=== PATIENT | female | born 1975 | race American Indian/Alaskan Native ===

== ENCOUNTER 2018-04-20 10:36 | Outpatient (CLI) | payer BC ==
--- NOTE | 2018-04-20 11:36 | Mammography Report ---
BILATERAL MAMMOGRAM: FINDINGS: The breast tissue is heterogeneously dense, which could obscure detection of small masses (approximately 50%-75% glandular). No mass, distortion, suspicious calcification, or skin change is seen. No significant change compared to prior exam in June 2016. CAD was utilized. IMPRESSION: Negative mammogram. There is no mammographic evidence of malignancy. RECOMMENDATION: Follow-up per ACS guidelines. BI-RADS CATEGORY: 1 = Negative ACR BI-RADS MAMMOGRAPHIC CODES: 0 = Needs additional imaging evaluation; 1 = Negative; 2 = Benign; 3 = Probably benign; 4 = Suspicious; 5 = Malignant; 6 = Known biopsy-proven malignancy COMMENT: 1. Dense breast tissue, i.e., adenosis, fibrocystic changes, etc., may obscure an underlying neoplasm. 2. Approximately 10% of cancers are not detected with mammography. 3. A negative mammography report should not delay biopsy if a clinically suspicious mass is present. COMMENT: Patient follow-up letters are generated in [employer].
== END 2018-04-20 10:37 | disposition home or self-care (01) ==
LOC: MAMMO 10:36
PROVIDERS: ATTEND Obstetrics & Gynecology
DX: Z12.31 Encounter for screening mammogram for malignant neoplasm of breast (principal); K21.9 Gastro-esophageal reflux disease without esophagitis; Z82.49 Family history of ischemic heart disease and other diseases of the circulatory system
CPT/HCPCS: 77067

== ENCOUNTER 2019-04-15 09:42 | Inpatient (IN) | payer BC ==
[2019-04-09 11:58] LABS: Eosinophils % (Auto) 1.3 % (0.0-4.3); Hematocrit 36.1 % (30.3-42.9); Hemoglobin 11.7 gm/dl (10.1-14.3); Lymphocytes # (Auto) 1.3 K/mm3 (1.2-5.4); Lymphocytes % (Auto) 34.6 % (13.4-35.0); Mean Corpuscular HGB Conc 32 % (30-34); Mean Corpuscular Volume 76 fl (79-97); Monocytes # (Auto) 0.2 K/mm3 (0.0-0.8); Monocytes % (Auto) 5.9 % (0.0-7.3); Platelet Count 272 K/mm3 (140-440); Red Blood Count 4.73 M/mm3 (3.65-5.03); Red Cell Distribution Width 14.8 % (13.2-15.2)
[2019-04-09 12:16] LABS: BUN/Creatinine Ratio 11; Blood Urea Nitrogen 9 mg/dL (7-17); Calcium 8.8 mg/dL (8.4-10.2); Hemolysis Index 24
--- NOTE | 2019-04-09 12:24 | Anesthesia Consultation ---
Anesthesia Consult and Med Hx Date of service: 04/09/19 - Airway Anesthetic Teeth Evaluation: Good ROM Head & Neck: Adequate Mental/Hyoid Distance: Adequate Mallampati Class: Class II Intubation Access Assessment: Probably Good - Pulmonary Exam CTA: Yes - Cardiac Exam Cardiac Exam: RRR - Pre-Operative Health Status ASA Pre-Surgery Classification: ASA1 Proposed Anesthetic Plan: General Nerve Block: TAP Block - Pulmonary Hx Smoking: No Hx Respiratory Symptoms: No - Cardiovascular System Hx Hypertension: No Hx Heart Attack/AMI: No - Central Nervous System Hx Seizures: Yes (childhood only) CVA: No - Gastrointestinal Hx Gastroesophageal Reflux Disease: No (During only) - Endocrine Hx Renal Disease: No Hx Liver Disease: No Hx Insulin Dependent Diabetes: No Hx Non-Insulin Dependent Diabetes: No Hx Thyroid Disease: No - Hematic Hx Anemia: Yes - Additional Comments Anesthesia Medical History Comments: No hx anesthetic complications.
--- NOTE | 2019-04-14 15:31 | History and Physical Report ---
History of Present Illness Date of examination: 04/08/19 History of present illness: Patient has been reassessed/reevaluated. H&P has been reviewed. No interval changes. This is a 43 years old female who presents with complains of menorrhagia, metrorrhagia and dysmenorrhea, . The symptoms began 4-6 months ago. She c omplains of irregular menses, heavy bleeding, dysmenorrhea and cramping, but denies mid-cycle spotting, lack of menses, clotting, history of ovarian cysts, history of thyroid disease, history of fibroids, history of PCOS, history of bleeding disorder, lightheadedness and fatigue. Interval between menses is 15- 20 days. Menstrual flow lasts 4 days and 6 days. Patient reports that for pain she uses ibuprofen will little relief. Patient's work up has included hysterosonogram which showed thicken endometrium left ovarian cyst. endometrial biopy was benign Patient's symptoms when present disrupts her normal daily activities Patient desires definitive treatment Patient Profile: 43 Years Old Female LMP: 03/25/2019 Height: 65 inches (165.10 cm) Weight: 180 pounds BMI: 29.95 LMP (date): 03/25/2019 Date of Last Pap Smear: 02/15/2019 Past History : 5 Term Births: 4 Premature Births: 0 Living Children: 4 Para: 4 Mult. Births: 0 Aborta: 1 Elect. Ab: 0 Spont. Ab: 1 Ectopics: 0 NEURODIAGNOSTIC TECHNICIAN History Operations: Tubal Ligation Uterine Anomaly: negative Infection History HIV Risk Eval: no Personal hx. of genital herpes: no Hx of STD: None Current Allergies: No known allergies Past Medical History: Negative Past Medical History Past Surgical History: Tubal Ligation Family History Summary: Other family member - Has Family History of Coronary Heart Disease - Entered On: 02/17/2018 Other family member - Has Family History of Diabetes - Entered On: 02/17/2018 Other family member - Has Family History of Hypertension - Entered On: 02/17/2018 Other family member - Has Family History of Lung Cancer - Entered On: 02/17/2018 Other family member - Has Family History of Ovarian Cancer - Entered On: 02/17/2018 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 Risk Factors: Smoked Tobacco Use: Never smoker Smokeless Tobacco Use: Never Passive smoke exposure: no Drug use: no HIV high-risk behavior: no Caffeine use: 0 drinks per day Alcohol use: yes Type: weekends Exercise: no Seatbelt use: 100 % PAP Smear History: Date of Last PAP Smear: 02/15/2019 Review of Systems General Complains of fatigue. Denies fever, chills, sweats, anorexia, weakness, malaise, weight loss and sleep disorder. Complains of menorrhagia, pelvic pain and painful periods. Denies vaginal discharge, incontinence, dysuria, hematuria, urinary frequency, amenorrhea, abnormal vaginal bleeding, genital sores, decreased libido, painful sex, urinary urgency, hot flashes, vaginal dryness, vaginal itching and vaginal odor. CV Denies chest pains, palpitations, syncope, dyspnea on exertion, orthopnea, PND and peripheral edema. Resp Denies cough, dyspnea at rest, excessive sputum, hemoptysis, wheezing and pleurisy. GI Denies nausea, vomiting, diarrhea, constipation, change in bowel habits, abdominal pain, melena, hematochezia, jaundice, gas/bloating, indigestion/heartburn, dysphagia and odynophagia. Breast Denies left breast lump, right breast lump, nipple discharge, bloody discharge from nipple, breast pain, abnormal mammogram and breast enlargement. Psych Denies depression, anxiety, irritability and mood swings. Past History Past Medical History: other (See HPI) Past Surgical History: Other (See HPI) Social history: full code, other (See HPI) Family history: other (See HPI) Medications and Allergies Allergies Allergy/AdvReac Type Severity Reaction Status Date / Time No Known Allergies Allergy Verified 04/07/19 13:03 Home Medications Medication Instructions Recorded Confirmed Last Taken Type No Known Home Medications [No 04/07/19 04/07/19 Unknown History Reported Home Medications] Active Meds: Active Medications Celecoxib (Celebrex) 200 mg PO PREOP NR Stop: 04/15/19 23:59 Fentanyl (Sublimaze) 100 mcg IV ONCE PRN PRN Reason: sedation for nerve block Stop: 04/15/19 23:59 Gabapentin (Neurontin) 300 mg PO PREOP NR Stop: 04/15/19 23:59 Lactated Ringer's (Lactated Ringers) 1,000 mls @ 100 mls/hr IV DIRECT WES Midazolam HCl (Versed) 2 mg IV PREOP NR Stop: 04/15/19 23:59 Review of Systems Constitutional: other (See HPI) Exam - Physical Exam Narrative exam: HEENT: normocephalic, no lesions or deformities Skin no significant abnormal lesions or rashes Chest: respiratory effort normal, clear to auscultation CV: regular, normal S1-S2, no murmur, no rub, no gallop Abdomen: Obese, normal bowel sounds, soft, nontender, no HSM Musculoskeletal: grossly normal ROM in joints, no joint tenderness or muscle weakness Neuro: no gross anomalities Extremities: no clubbing, cyanosis, or edema NEURODIAGNOSTIC TECHNICIAN Exams Vulva/Vagina: No lesions, normal BUS, normal rugae Cervix: No lesions; no cervical motion tenderness Uterus: unable to palpate due to obesity Adnexae: unable to palpate due to obesity Rectovaginal: exam defered - Constitutional Vitals: Temp Pulse Resp BP Pulse Ox 97.8 F 76 20 104/60 100 04/09/19 11:20 04/09/19 11:20 04/09/19 11:20 04/09/19 11:20 04/09/19 11:20 Results - Labs CBC & Chem 7: 04/09/19 11:20 04/09/19 11:20 Assessment and Plan - Patient Problems (1) Menorrhagia Current Visit: No Status: Acute Qualifiers: Menorrahagia type: with irregular cycle Qualified Code(s): N92.1 - Excessive and frequent menstruation with irregular cycle Plan to address problem: Medical and surgical treatment options discussed Patient's symptoms when present disrupts her normal daily activities Patient desires definitive treatment Patient desires hysterectomy Discussed risks and benefits of laparotomy, laparoscopy, vaginal and robotic assisted approaches for hysterectomies Patient desires robotic assisted total hysterectomy. Patient desires robotic assisted total hysterectomy. Consent reviewed and signed . The risks and alternatives for this surgery were reviewed with the patient. Discuss the risks of the surgery including infection, bleeding possibly heavy enough to require a blood transfusion, possible damage to bowel, bladder or ureter. Patient understand that this surgery with make her sterile. Patient understands if her ovaries are removed she will become menopausal. Also if unable to complete robitcally a laparotomy may required Patient advised the small risks of spreading of malignancy if morcellator is used during the surgery patient understands and approve of use if necessary Patient desires perserve her ovariies if normal (2) Dysmenorrhea Current Visit: No Status: Acute (3) Ovarian cyst Current Visit: No Status: Acute Qualifiers: Laterality: left Qualified Code(s): N83.202 - Unspecified ovarian cyst, left side
[~2019-04-15 09:42] MED LIST: LACTATED RINGERS 1,000 ML IV SCH; NEURONTIN PO NR; SUBLIMAZE IV PRN; VERSED IV NR
--- NOTE | 2019-04-15 10:18 | Anesthesia Day of Surgery ---
Anesthesia Day of Surgery - Day of Surgery Patient Examined: Yes Patient H&P Reviewed: Yes Patient is NPO: Yes
[2019-04-15] MEDS ORDERED: ANCEF/STERILE WATER 2 GM/20 ML 2 GM/20 ML SYRINGE IV NR (11:00)
[2019-04-15] MEDS ORDERED: MARCAINE-EPI 0.5%-1:200,000 INFILTRATI ONE (11:04)
[2019-04-15] MEDS ORDERED: TORADOL ONE (12:34)
[2019-04-15] MEDS ORDERED: ZEMURON IV ONE (12:34)
[2019-04-15] MEDS ORDERED: BLOXIVERZ ONE (12:34)
[2019-04-15] MEDS ORDERED: DECADRON ONE (12:34)
[2019-04-15] MEDS ORDERED: ZOFRAN ONE (12:34)
[2019-04-15] MEDS ORDERED: XYLOCAINE MPF 2% ONE (12:34)
[2019-04-15] MEDS ORDERED: ROBINUL ONE ×2 (12:34→12:40)
[2019-04-15] MEDS ORDERED: SUBLIMAZE ONE (12:35)
[2019-04-15] MEDS ORDERED: DIPRIVAN 10 MG/ML IV ONE (12:35)
[2019-04-15] MEDS ORDERED: NEOSPORIN GU IR ONE ×2 (12:42→13:56)
[2019-04-15] MEDS ORDERED: NACL 0.9% IR ONE ×2 (13:56)
--- NOTE | 2019-04-15 14:42 | Operative Report ---
Operative Report Operative Report: Date of procedure: 04/15/2019 Pre-operative diagnosis: Myomata with menorrhalgia and dysmenorrhea Post-operative diagnosis: Same plus right ovarian mass Procedure name(s):Robotic Assisted Total Hysterectomy with right salpingo- oophorectomy Surgeon: Da Ochoa MD Turn Operator: Tammy Cedeño, certified nursing attendant Anesthesia: General EBL: 50 mL Complications: None Findings: Uterus approximately 10-12 weeks size with leiomyomata normal left ovary right ovarian 3cm solid mass.Normal fallopian tubes bilaterally Specimen(s): Uterus with bilateral fallopian tubes and right ovary Procedure: Patient was brought to the operating room where general anesthesia was induced without difficulty. Patient was placed in the dorsal lithotomy position. Prepped and draped in the usual sterile manner for robotic procedure. Powell catheter was placed without difficulty. Speculum was placed in the vagina. A large V-Care Uterine manipulator was placed without difficulty. Attention was now switched to the patient's abdomen. A vertical supra-umbilicus incision was made with a scalpel. A 10-12 trocar was placed in this incision under direct visualization. Intra-abdominal placement was verified with no evidence of internal organ damage. The patient pelvic findings were noted as above. It was determined that the patient was a candidate for robotic procedure. On both sides the umbilical incision at about 8 cm, incisions were made for robotic trocar. Each robotic trocar was placed under direct visualization with no evidence of internal organ damage. One 8-10 trocar was placed 2 fingerbreadths above the right iliac crest. At this time the patient was placed in extreme Trendelenburg. The da Kari robot was then docked on the patient's left side. The trocars connected to the robot appropriately. At this time I took my place under the robotic operating valdovinos. Starting on the patient's right side the mesosalpinx of the tube were cauterized for mild distal to proximal tube. Bipolar cautery was placed across the proximal portion of the fallopian tube. This area was cauterized and cut the fallopian tube was then removed from the large roofer assistant port. Utero-ovarian complex was cauterized and cut. This was followed by cauterizing and cutting the right fallopian tube and right round ligament. The broad ligament was then opened. The bladder flap was formed anteriorly. The posterior broad ligament was then excised. The uterine vessels were skeletonized. The ureter was clearly seen out of the operative field. The bladder was pushed away from the anterior uterus. Attention was then switched to the patient's left side. The same procedure was repeated on the left side with perform the salpingectomy followed by isolating the uterine vessels cauterized and cutting and completing the bladder flap from the left side. At this time the uterus was appearing very cyanotic. After inspecting the bladder flap insured no evidence of bladder injury, the colpotomy was then started. Incision started at 6:00 until the V-Care could be seen. This incision was extended from 6:00 to 9:00. Then from 6:00 to 3:00. Then from 9:00 to 12:00. This incision was extended from 2:00 to 12:00. At this time colpotomy was complete with no evidence of adjacent organ damage. The dental assistant instructor remove the uterus from through the colpotomy site. At this time I inspected the right ovarian mass and decided to remove her due to the solid nature of this mass. The ureter was identified and found to be away from the operative site. the ovarian vessels were cauterized and cut. I placed this ovary through the colpotomy site for removal. The vaginal cuff was irrigated and cauterized and found to be hemostatic. The cuff was closed with roboticly using 0 V- Lock suture. This closure was hemostatic after irrigation and Bovie. All pedicles were inspected and found to be hemostatic. The ureters were identified bilaterally and found to be functioning normal. The patient had clear urine in the Powell catheter with no evidence of mixture with blood. Benjamín was placed on the cuff and pedicles for postoperative hemostasis . All instruments were then removed. The large trocar sites were closed in layers and 4-0 Vicryl. The smaller incisions were closed subcuticularly with 4-0 Vicryl. The patient tolerated procedure well. She was awakened in the operating room and accompanied to the recovery room in good condition.
--- NOTE | 2019-04-15 15:42 | Post Anesthesia Evaluation ---
- Post Anesthesia Evaluation Patient Participated: Yes Airway Patent: Yes Stable Respiratory Function: Yes Nausea/Vomiting: No Temp > 96.8F: Yes Pain Manageable: Yes Adequeate Hydration: Yes Anesthesia Complications: No Block Receding Appropriately: Yes Patient on Ventilator: No
[2019-04-15] MEDS ORDERED: NORCO 5/325 PO PRN (16:35)
[2019-04-15] MEDS ORDERED: MILK OF MAGNESIA PO PRN (16:35)
--- NOTE | 2019-04-15 17:38 | Event Note ---
Date: 04/15/19 Day of surgery. Discuss operative findings with patient findings on her right ovary. Questions answered. Patient complains of being hungry. Will advance diet as tolerated. Patient without fever. Will ambulate in halls this evening. Good urine output. We will continue routine postoperative care.
[2019-04-15] MEDS: TORADOL IV SCH ×2 (18:42→23:56)
[2019-04-15] MEDS: D5LR 1,000 ML IV SCH (18:42)
[2019-04-15] MEDS: ANCEF/NS 1 GM/50 ML 1 GM/50 ML BAG IV SCH ×2 (18:46→23:57)
[2019-04-16] MEDS: COLACE PO SCH ×2 (00:13→14:11)
[2019-04-16] MEDS: D5LR 1,000 ML IV SCH (02:49)
[2019-04-16] MEDS: TORADOL IV SCH ×2 (06:01→13:45)
[2019-04-16 06:53] LABS: Hematocrit 34.9 % (30.3-42.9); Hemoglobin 11.2 gm/dl (10.1-14.3)
--- NOTE | 2019-04-16 09:09 | Short Stay Summary ---
Short Stay Documentation Date of service: 04/16/19 - History Principal diagnosis: symptomatic loud myomata H&P: dictated Past Medical History: other (See HPI) Past Surgical History: Other (See HPI) Social history: full code, other (See HPI) - Allergies and Medications Current Medications: Allergies No Known Allergies Allergy (Verified 04/07/19 13:03) Home Medications Medication Instructions Recorded Confirmed Last Taken Type Fluconazole [Diflucan TAB] 150 mg PO ONCE #1 tablet 04/16/19 Unknown Rx Ibuprofen [Motrin 800 MG tab] 800 mg PO Q6H PRN #30 tablet 04/16/19 Unknown Rx oxyCODONE /ACETAMINOPHEN [Percocet 1 - 2 tab PO Q4H PRN #25 tablet 04/16/19 Unknown Rx 5/325 mg] Active Medications Acetaminophen/Hydrocodone Bitart ([place] 5/325) 2 each PO Q4H PRN PRN Reason: Pain, Moderate (4-6) Docusate Sodium (Colace) 100 mg PO BID WES Last Admin: 04/16/19 00:13 Dose: 100 mg Documented by: Dextrose/Lactated Ringer's ([email or web address]) 1,000 mls @ 125 mls/hr IV DIRECT WES Last Admin: 04/16/19 02:49 Dose: 125 mls/hr Documented by: Ketorolac Tromethamine (Toradol) 30 mg IV Q6H WES Stop: 04/16/19 14:59 Last Admin: 04/16/19 06:01 Dose: 30 mg Documented by: Magnesium Hydroxide (Milk Of Magnesia) 30 ml PO Q4H PRN PRN Reason: Constipation - Brief post op/procedure progress note Date of procedure: 04/15/19 (see operative note) - Hospital course Hospital course: Patient was admitted and underwent above procedure without complications. Her post operative course was benign she was afebrile throughout. Patient postoperative day 1 hematocrit was in an acceptable range. Patient had no ort hostatic symptoms. Patient was tolerating regular diet and voiding without difficulty at time of discharge. Patient incision was healing well without evidence of infection. - Disposition Condition at discharge: Good Disposition: DC-01 TO HOME OR SELFCARE - Discharge Diagnoses (1) Menorrhagia Status: Acute Qualifiers: Menorrahagia type: with irregular cycle Qualified Code(s): N92.1 - Excessive and frequent menstruation with irregular cycle (2) Dysmenorrhea Status: Acute (3) Ovarian cyst Status: Acute Qualifiers: Laterality: left Qualified Code(s): N83.202 - Unspecified ovarian cyst, left side Short Stay Discharge Plan Activity: advance as tolerated Diet: regular Wound: open to air Additional Instructions: Patient instructed no heavy lifting for 4 weeks. No intercourse for 8 weeks. Call office for fever, chills, nausea, vomiting or pain not controlled by pain medications. Ambulation is encouraged. Patient's call for heavy vaginal bleeding. Patient instructed to keep her scheduled post operative office appointment. Follow up with: SHADI KIM MD [Primary Care Provider] - 7 Days Prescriptions: Fluconazole [Diflucan TAB] 150 mg PO ONCE #1 tablet Ibuprofen [Motrin 800 MG tab] 800 mg PO Q6H PRN #30 tablet PRN Reason: Pain oxyCODONE /ACETAMINOPHEN [Percocet 5/325 mg] 1 - 2 tab PO Q4H PRN #25 tablet PRN Reason: Pain, Moderate
[2019-04-16 13:17] VITALS: BP 107/57
== END 2019-04-16 15:45 | disposition home or self-care (01) | DRG 743 ==
LOC: OR 09:42 → OB 14:45
PROVIDERS: ADMIT Obstetrics & Gynecology; ATTEND Obstetrics & Gynecology
PROC: 0UT94ZZ Resection of Uterus, Percutaneous Endoscopic Approach (ICD-10-PCS; principal; 2019-04-15)
PROC: 0UT74ZZ Resection of Bilateral Fallopian Tubes, Percutaneous Endoscopic Approach (ICD-10-PCS; 2019-04-15)
PROC: 8E0W4CZ Robotic Assisted Procedure of Trunk Region, Percutaneous Endoscopic Approach (ICD-10-PCS; 2019-04-15)
DX: N92.1 Excessive and frequent menstruation with irregular cycle (principal); N94.6 Dysmenorrhea, unspecified; N83.202 Unspecified ovarian cyst, left side; Z98.51 Tubal ligation status; Z82.49 Family history of ischemic heart disease and other diseases of the circulatory system; Z83.3 Family history of diabetes mellitus; Z80.41 Family history of malignant neoplasm of ovary; Z80.1 Family history of malignant neoplasm of trachea, bronchus and lung; Z79.899 Other long term (current) drug therapy
CPT/HCPCS: 36415; 64450; 80048; 84703; 85014; 85018; 85025; 86850; 86900; 86901; 88302; 88305; 88307; G0378; A4217; J0690; J1100; J1885; J2250; J2405; J2704; J2710; J3010; J7120; J7121